=== PATIENT | female | born 1990 | race Caucasian/White ===

== ENCOUNTER → 2017-03-15 | Outpatient (CLI) | payer OTHER ==
[~2017-03-15] MED LIST: GADAVIST IV PRN
--- NOTE | 2017-03-15 23:23 | DIAGNOSTIC IMAGING REPORT ---
MRI OF THE BRAIN AND PITUITARY WITH AND WITHOUT CONTRAST CLINICAL HISTORY: Hyperprolactinemia. Irregular menstrual cycle. COMPARISON STUDY: No previous studies for comparison. TECHNIQUE: Utilizing a 1.5 Beatriz magnet, multiplanar, multiecho imaging of the brain was performed pre and postcontrast administration with thin cut pre and postcontrast imaging with dynamic enhancement through the pituitary gland. Injection of 6 cc of Gadavist IV was uneventful. FINDINGS: There are no foci of restricted diffusion. No acute intracranial hemorrhage, midline shift or mass effect is present. Brain volume is normal. Ventricular system is normal. The basilar cisterns are patent. There are no extra-axial collections. Flow-voids for the major intracranial vessels are present. There is no intracranial mass or pathologic enhancement. Calvarial signal is maintained. Orbits and sinuses are unremarkable. Mastoid air cells are well aerated. The size of the pituitary gland is normal. Optic chiasm is normal. Infundibulum is normal. No pituitary lesion is identified on this examination. IMPRESSION: 1. Normal MRI of the brain. 2. No pituitary adenoma identified. Electronically signed by: Alex White M.D. 03/15/2017 11:21 PM Dictated Date/Time: 03/15/2017 8:41 PM
== END | disposition home or self-care (01) ==
LOC: C.MRI 17:48
PROVIDERS: ATTEND Internal Medicine Endocrinology, Diabetes & Metabolism
DX: E22.1 Hyperprolactinemia (principal); N92.6 Irregular menstruation, unspecified

== ENCOUNTER → 2017-04-06 | Day surgery (SDC) | payer OTHER ==
[~2017-04-06] VITALS: Ht 157.5 cm; Wt 60.0 kg
[~2017-04-06] MED LIST changes: +BCPILLS PO; +COSYNTROPIN INJ 250 MCG in SYRINGE 4 ML IV SCH; -GADAVIST IV PRN
[2017-04-06 08:03] VITALS: BP 111/73; PULSE 81; TEMP 36.5; O2SAT 99; Ht 157.5 cm; Wt 60.0 kg
[2017-04-06 09:09] VITALS: BP 101/67; PULSE 75; TEMP 36.5; O2SAT 98
[2017-04-06 09:40] VITALS: BP 108/70; PULSE 72; TEMP 36.8; O2SAT 99
== END | disposition home or self-care (01) ==
LOC: C.MTU 07:48
PROVIDERS: ATTEND Internal Medicine Endocrinology, Diabetes & Metabolism
DX: E28.2 Polycystic ovarian syndrome (principal)